=== PATIENT | male | born 1965 | race Native Hawaiian/Other Pacific Islander ===

== ENCOUNTER 2017-06-21 10:30 | Observation (INO) | payer BC ==
[~2017-06-21] VITALS: Ht 182.9 cm; Wt 103.2 kg
[2017-06-21 13:03] LABS: PLATELET COUNT 234 K/uL (142-355)
[2017-06-21 13:34] LABS: PARTIAL THROMBOPLASTIN TIME 26.8 SECONDS (24.5-33.6)
[2017-06-21 13:49] LABS: POTASSIUM 4.3 mmol/L (3.6-5.2); SODIUM 136 mmol/L (136-145)
[2017-06-21 14:59] VITALS: BP 170/118; TEMP 98.2; Ht 182.9 cm; Wt 103.2 kg
[2017-06-21 20:00] VITALS: BP 154/89; TEMP 98.3
[2017-06-22] VITALS: BP 170/92; TEMP 98.5
[2017-06-22] MEDS ORDERED: BYSTOLIC20 MG PO (03:30)
[2017-06-22 04:00] VITALS: BP 166/99; TEMP 98.2
[2017-06-22 05:11] LABS: PLATELET COUNT 192 K/uL (142-355)
[2017-06-22 05:47] LABS: POTASSIUM 3.7 mmol/L (3.6-5.2); SODIUM 137 mmol/L (136-145)
[2017-06-22 06:00] VITALS: BP 166/99; TEMP 98.2
[2017-06-22 08:11] VITALS: BP 155/93; TEMP 97.8
[2017-06-22 12:00] VITALS: BP 142/98; TEMP 98
== END 2017-06-22 14:00 | disposition home or self-care (01) ==
LOC: MED/SURG 10:30
PROVIDERS: Family Medicine; ADMIT Nurse Practitioner
DX: R07.89 Other chest pain (principal); I16.0 Hypertensive urgency
CPT/HCPCS: 36415; 80053; 82550; 82553; 84484; 85027; 85610; 85730; 90658; 90732; 93005; 94760; 96365; 96366; 96372; 99220; G0378; G0379; J1650; J1885; Q9963

== ENCOUNTER 2019-02-25 10:00 | Observation (INO) | payer BC ==
[~2019-02-25] VITALS: Ht 182.9 cm; Wt 105.3 kg
[~2019-02-25 10:00] MED LIST: BYSTOLIC20 MG PO
[2019-02-25 14:37] VITALS: BP 160/85; TEMP 98.5; Ht 182.9 cm; Wt 105.3 kg
[2019-02-25 14:51] LABS: PLATELET COUNT 219 K/uL (142-355)
[2019-02-25 14:59] LABS: POTASSIUM 4.1 mmol/L (3.6-5.2)
[2019-02-25 16:00] VITALS: BP 160/85; TEMP 98.5
[2019-02-25] MEDS ORDERED: LISI10TA11 PO (17:14)
[2019-02-25] MEDS ORDERED: BYSTOLIC20 MG PO (17:16)
[2019-02-25 20:00] VITALS: BP 154/97; TEMP 99
[2019-02-26] VITALS: BP 147/93; TEMP 98.9
[2019-02-26 04:00] VITALS: BP 134/84; TEMP 98.6
[2019-02-26 08:22] VITALS: BP 126/86; TEMP 97.7
[2019-02-26 12:06] VITALS: BP 132/99; TEMP 98.1
[2019-02-26 16:07] VITALS: BP 130/78; TEMP 97.9
[2019-02-26 20:00] VITALS: BP 138/93; TEMP 98.2
[2019-02-27] VITALS: BP 137/91; TEMP 98.2
[2019-02-27 04:00] VITALS: BP 140/85; TEMP 98
[2019-02-27 05:12] LABS: PLATELET COUNT 221 K/uL (142-355)
[2019-02-27 05:25] LABS: POTASSIUM 4.3 mmol/L (3.6-5.2)
[2019-02-27 08:00] VITALS: BP 138/76; TEMP 97.9
[2019-02-27 12:00] VITALS: BP 132/81; TEMP 97.8
[2019-02-27 16:00] VITALS: BP 132/87; TEMP 98
[2019-02-27 20:00] VITALS: BP 143/94; TEMP 97.9
[2019-02-28] VITALS: BP 143/87; TEMP 98
[2019-02-28 04:00] VITALS: BP 136/90; TEMP 97.8
[2019-02-28 08:00] VITALS: BP 149/88; TEMP 97.5
== END 2019-02-28 10:25 | disposition home or self-care (01) ==
LOC: MED/SURG 10:00
PROVIDERS: ADMIT Internal Medicine
DX: L03.115 Cellulitis of right lower limb (principal); B95.7 Other staphylococcus as the cause of diseases classified elsewhere; I10 Essential (primary) hypertension; I83.891 Varicose veins of right lower extremity with other complications
CPT/HCPCS: 36415; 36591; 80053; 85027; 85651; 87070; 87077; 87185; 87186; 87205; 90471; 90715; 96360; 96372; 99220; G0378; G0379; J0696; J1650

== ENCOUNTER 2020-08-11 15:55 | Outpatient (CLI) | payer BC ==
[~2020-08-11 15:55] MED LIST changes: +LISI10TA11 PO
== END 2020-08-11 22:16 | disposition home or self-care (01) ==
LOC: RAD 15:55
PROVIDERS: ATTEND Internal Medicine
DX: M25.562 Pain in left knee (principal); M79.605 Pain in left leg

== ENCOUNTER 2021-12-26 09:52 | Outpatient (CLI) | payer BC | END 2021-12-26 19:03 | disposition home or self-care (01) | LOC: US 09:52 | PROVIDERS: ATTEND Internal Medicine | DX: M79.604 Pain in right leg (principal) ==